=== PATIENT | male | born 1960 | race Caucasian/White ===

== ENCOUNTER 2018-12-15 23:19 | Emergency (ER) | payer BC ==
[2018-12-15] MEDS ORDERED: Zofran 4 MG/2 ML VIAL IV ONE (23:52)
[2018-12-15] MEDS ORDERED: Hydromorphone 1 mg/ml Ampule IV ONE (23:53)
[2018-12-15] MEDS ORDERED: Zofran 4 MG/2 ML VIAL ONE (23:58)
[2018-12-15] MEDS ORDERED: Hydromorphone 1 mg/ml Ampule ONE (23:58)
[2018-12-16 00:33] LABS: Absolute Neutrophil Ct (ANC) 5.81 (1.4-6.9); BASOPHIL % 0.4 % (0.0-0.4); Basophil (Absolute #) 0.05 (0-0.4); Eosinophil % 4.1 % (0.00-5.0); Eosinophil (Absolute #) 0.46 (0-0.5); Hematocrit 49.3 % (42-50); Hemoglobin 15.8 gm/dl (12.5-18.0); Lymphocyte (Absolute #) 4.16 (1.0-4.6); Lymphocytes % 36.9 % (24.0-44.0); Mean Cell Volume 88.2 fl (78-100); Mean Corpuscular Hemoglobin 28.3 pg (26-32); Mean Platelet Volume 10.5 fl (6-9.5); Monocyte (Absolute #) 0.78 (0.0-1.3); Monocytes % 6.9 % (0.0-12.0); Neutrophil % 51.7 % (36.0-66.0); Platelet Count 280 K/mm3 (150-450); Red Blood Count 5.59 M/mm3 (4.1-5.6); Red Cell Distribution Width 14.9 % (11.5-14.0); White Blood Count 11.3 K/mm3 (4.0-10.5)
[2018-12-16 00:50] LABS: ALBUMIN 4.6 g/dL (3.5-5.0); ALKALINE PHOSPHATASE 233 U/L (38-126); AMYLASE 1080 U/L (30-110); ANION GAP 18.3 MEQ/L (5-15); BLOOD UREA NITROGEN 15 mg/dL (9-20); CHLORIDE 100 mmol/L (98-107); Carbon Dioxide 30 mmol/L (22-30); Creatinine 1 0.99 mg/dL (0.66-1.25); Glucose 151 mg/dL (74-106); Potassium 3.9 mmol/L (3.5-5.1); SGOT/AST 620 U/L (17-59); SGPT/ALT 737 U/L (0-50); SODIUM 144 mmol/L (137-145); Total Protein 8.2 g/dL (6.3-8.2)
[2018-12-16 01:12] LABS: LIPASE 27099 U/L (23-300)
--- NOTE | 2018-12-16 01:37 | ERPHSYRPT ---
- History of Present Illness Time Seen by Provider: 12/15/18 23:45 Historian: patient Exam Limitations: other (Pain - difficult to assess due to discomfort level sitging on end of exam bed...cannot lay down) Patient Subjective Stated Complaint: Pt states, "I've been taking Atorvastatin 3 weeks ago and took it for a week and was really sick. Then I started taking it every other day and have still been sick on the days taking it but not sick on the days i didn't take it". Triage Nursing Assessment: pt was vomiting in waiting room upon walking back to rm 7. Pt c/o upper abd pain all the way across abd, states "It's from the atorvastatin I've been taking". Pt also c/o flank pain bilat. Abd lg, obese and soft with active bs x4 quad, tender on palpation. Lungs clear, heart tones reg. Physician History: As above - patient thinks sick - pain - after taking Atorvistatin for one week. Tonight pain increased and vomiting in waiting room. Hs diabetes and is on Metformin. Timing/Duration: today Activities at Onset: none Quality: burning, cramping, fullness, pressure, sharpness Abdominal Pain Onset Location: generalized abdomen Pain Radiation: no radiation Severity of Pain-Max: severe Severity of Pain-Current: severe Modifying Factors: Improves With: nothing Associated Symptoms: vomiting Previous symptoms: no prior history Allergies/Adverse Reactions: No Known Drug Allergies Allergy (Unverified 09/21/11 09:33) Home Medications: Lisinopril 10 mg [Zestril 10 MG] 10 mg PO DAILY 09/16/14 [History] Atorvastatin Calcium 20 mg PO CLARIFY 12/15/18 [History] Liraglutide [Victoza 2-Milton] 1.8 mg SQ DAILY 12/15/18 [History] Metformin HCl 500 mg [Glucophage 500 MG] 500 mg PO BID 12/15/18 [History] Hx Tetanus, Diphtheria Vaccination/Date Given: Yes Hx Influenza Vaccination/Date Given: No Hx Pneumococcal Vaccination/Date Given: No Immunizations Up to Date: Yes - Review of Systems Constitutional: Malaise Eyes: No Symptoms Ears, Nose, & Throat: No Symptoms Respiratory: No Symptoms, No Cough, No Cyanosis, No Dyspnea Cardiac: No Symptoms, No Chest Pain Abdominal/Gastrointestinal: Abdominal Pain, Nausea, Vomiting, No Diarrhea Genitourinary Symptoms: No Symptoms, No Dysuria, No Frequency Musculoskeletal: No Symptoms Skin: No Symptoms Neurological: No Symptoms All Other Systems: Reviewed and Negative - Past Medical History Pertinent Past Medical History: Yes Neurological History: No Pertinent History ENT History: No Pertinent History Cardiac History: Hypertension Respiratory History: No Pertinent History Endocrine Medical History: Diabetes Type II Musculoskeletal History: Osteoarthritis GI Medical History: No Pertinent History History: No Pertinent History Psycho-Social History: No Pertinent History Male Reproductive Disorders: No Pertinent History Other Medical History: ROTATOR CUFF REPAIR 03/2016. 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 BACK SURGERY FOR RUPTURED DISC 20 YEARS AGO - Past Surgical History Past Surgical History: Yes Neuro Surgical History: No Pertinent History Cardiac: No Pertinent History Respiratory: Lobectomy Gastrointestinal: No Pertinent History Genitourinary: No Pertinent History Musculoskeletal: Joint Replacement, Orthopedic Surgery Male Surgical History: No Pertinent History Other Surgical History: rt knee replacement. ROTATOR CUFF REPAIR 03/2016. 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 BACK SURGERY FOR RUPTURED DISC 20 YEARS AGO - Social History Smoking Status: Former smoker Exposure to second hand smoke: Yes Drug Use: none Patient Lives Alone: No - Nursing Vital Signs Nursing Vital Signs: Initial Vital Signs Temperature 98.4 F 12/15/18 23:20 Pulse Rate 110 H 12/15/18 23:20 Respiratory Rate 20 12/15/18 23:20 Blood Pressure 111/93 12/15/18 23:20 O2 Sat by Pulse Oximetry 99 12/15/18 23:20 Pain Scale Pain Intensity 3 - Physical Exam General Appearance: severe distress (Vomiting; pain) Eye Exam: PERRL/EOMI Ears, Nose, Throat Exam: normal ENT inspection Neck Exam: normal inspection Respiratory Exam: normal breath sounds, lungs clear, airway intact Cardiovascular Exam: regular rate/rhythm, normal heart sounds Gastrointestinal/Abdomen Exam: distention, guarding Back Exam: normal inspection, normal range of motion Extremity Exam: normal inspection, normal range of motion Neurologic Exam: alert, oriented x 3 Skin Exam: normal color, warm, dry SpO2 Interpretation: normal SpO2: 99 O2 Delivery: Room Air - Course Nursing assessment & vital signs reviewed: Yes - CT Exams Abdomen/Pelvis CT Interpretation: Tele-radiologist Report (GB stones; common duct and hepatic duct dilation; Pancreatitis) Ordered Tests: Active Orders 24 hr Category Date Time Status ABDOMEN AND PELVIS W/0 CONTRAS [CT] Stat Exams 12/16/18 00:56 Taken Medication Summary Discontinued Medications Generic Name Dose Route Start Last Admin Trade Name Bina PRN Reason Stop Dose Admin Hydromorphone HCl 1 mg 12/15/18 23:53 12/16/18 00:01 Hydromorphone 1 Mg/Ml Ampule IV 12/15/18 23:54 1 mg STAT ONE Administration Hydromorphone HCl Confirm 12/15/18 23:58 Hydromorphone 1 Mg/Ml Ampule Administered 12/15/18 23:59 Dose 1 mg .ROUTE .STK-MED ONE Hydromorphone HCl 1 mg 12/16/18 02:27 12/16/18 02:31 Hydromorphone 1 Mg/Ml Ampule IV 12/16/18 02:28 1 mg STAT ONE Administration Hydromorphone HCl Confirm 12/16/18 02:27 Hydromorphone 1 Mg/Ml Ampule Administered 12/16/18 02:28 Dose 1 mg .ROUTE .STK-MED ONE Lactated Ringer's Confirm 12/16/18 03:31 Lactated Ringers Administered 12/16/18 03:32 Dose 1,000 mls @ ud IV .STK-MED ONE Lactated Ringer's 1,000 mls @ 250 mls/hr 12/16/18 04:00 12/16/18 03:34 Lactated Ringers IV 01/15/19 03:59 250 mls/hr .Q4H JUS Administration Ondansetron HCl 8 mg 12/15/18 23:52 12/16/18 00:01 Zofran 4 Mg/2 Ml Vial IV 12/15/18 23:53 8 mg STAT ONE Administration Ondansetron HCl Confirm 12/15/18 23:58 Zofran 4 Mg/2 Ml Vial Administered 12/15/18 23:59 Dose 8 mg .ROUTE .STK-MED ONE Lab/Rad Data: Laboratory Result Diagrams 12/15/18 00:23 12/15/18 00:23 Laboratory Results 12/15/18 12/15/18 Range/Units 00:23 00:23 WBC 11.3 H (4.0-10.5) K/mm3 RBC 5.59 (4.1-5.6) M/mm3 Hgb 15.8 (12.5-18.0) gm/dl Hct 49.3 (42-50) % MCV 88.2 (78-100) fl MCH 28.3 (26-32) pg MCHC 32.0 (32-36) g/dl RDW 14.9 H (11.5-14.0) % Plt Count 280 (150-450) K/mm3 MPV 10.5 H (6-9.5) fl Gran % 51.7 (36.0-66.0) % Eos # (Auto) 0.46 (0-0.5) Absolute Lymphs (auto) 4.16 (1.0-4.6) Absolute Monos (auto) 0.78 (0.0-1.3) Lymphocytes % 36.9 (24.0-44.0) % Monocytes % 6.9 (0.0-12.0) % Eosinophils % 4.1 (0.00-5.0) % Basophils % 0.4 (0.0-0.4) % Absolute Granulocytes 5.81 (1.4-6.9) Basophils # 0.05 (0-0.4) Sodium 144 (137-145) mmol/L Potassium 3.9 (3.5-5.1) mmol/L Chloride 100 (98-107) mmol/L Carbon Dioxide 30 (22-30) mmol/L Anion Gap 18.3 H (5-15) MEQ/L BUN 15 (9-20) mg/dL Creatinine 0.99 (0.66-1.25) mg/dL Estimated GFR > 60.0 ML/MIN Glucose 151 H (74-106) mg/dL Calcium 11.0 H (8.4-10.2) mg/dL Total Bilirubin 1.90 H (0.2-1.3) mg/dL AST 620 H (17-59) U/L ALT 737 H (0-50) U/L Alkaline Phosphatase 233 H (38-126) U/L Serum Total Protein 8.2 (6.3-8.2) g/dL Albumin 4.6 (3.5-5.0) g/dL Amylase 1080 H (30-110) U/L Lipase 94393 H (23-300) U/L - Progress Progress: improved (Pain relief with dilaudid and emesis controlled with zofran) Progress Note: 12/16/18 03:39 CT and lab results (Amylase/1080; Lipase/27,099 - ALT/AST/Alk Phos) discussed with [facility] - GI Dr. Sylvester; Hospitalist Dr Ball. The surgeon is Dr. Castillo to be on consult. Plan is for ERCP at 0900 this morning. 12/16/18 04:17 Discussion with patient and spouse - at length - lab and CT results and need for further evaluation/procedure/surgery. Counseled pt/family regarding: lab results, diagnosis (Plan for definitive evaluation at [facility]) - Departure Departure Disposition: Transfer Clinical Impression: Pancreatitis due to common bile duct stone Condition: Stable Critical Care Time: Yes Critical Care Time(excluding separately billable procedures): Critical 30-74 mins (Eval of labs, patient clinical picture/history; CT results; discussion with hospitalist attempts to transfer to [facility] (pt refuses [facility]) and final discussion with GI and Hospitalist at [facility]) Referrals: JS MONSALVE, LUIS A [Primary Care Provider] -
[2018-12-16] MEDS ORDERED: Hydromorphone 1 mg/ml Ampule IV ONE (02:27)
[2018-12-16] MEDS ORDERED: Hydromorphone 1 mg/ml Ampule ONE (02:27)
[2018-12-16] MEDS ORDERED: Lactated Ringers 1,000 ML IV ONE (03:31)
[2018-12-16] MEDS ORDERED: Lactated Ringers 1,000 ML IV SCH (04:00)
[2018-12-16 04:12] VITALS: BP 118/88; PULSE 121
[2018-12-16 04:13] VITALS: O2SAT 99
--- NOTE | 2018-12-16 09:27 | XRAY ---
Indication: Abdomen/flank pain. Heartburn and emesis. Multiple contiguous axial images obtained through the abdomen and pelvis without contrast as ordered. Comparison: November 20, 2018. Study limited due to patient body habitus. Lung bases are grossly clear. Heart is not enlarged. Stomach is mildly distended with fluid. Noncontrasted stomach and bowel loops appear nonobstructed. Normal appendix. Again minimal descending and sigmoid diverticulosis. No free fluid/air. Gallbladder mildly distended with intraluminal gravel/sludge., Bile duct is now 12 mm diameter. Again diffuse fatty liver. Spleen remains enlarged measuring 16.5 cm. Remaining liver, gallbladder, pancreas, spleen, adrenal glands, kidneys, ureters, and bladder appear unremarkable for noncontrast exam. Again minimal aortoiliac calcifications without AAA. Osseous structures intact again with mild degenerative changes throughout the thoracolumbar spine. Stable small fatty left inguinal hernia. Impression: 1. Again limited exam due to patient body habitus. 2. Gallbladder gravel/sludge. Sonogram may yield further information. 3. Prominent common bile duct. ERCP/MRCP may yield further information. 4. Again incidental fatty liver, splenomegaly, colonic diverticulosis, and fatty left inguinal hernia. Comment: Preliminary interpretation was made by [facility]. No critical discrepancy. CTDI 23.68
== END 2018-12-16 04:46 | disposition short-term general hospital (02) ==
LOC: ED 23:19
DX: K85.90 Acute pancreatitis without necrosis or infection, unspecified (principal); K80.50 Calculus of bile duct without cholangitis or cholecystitis without obstruction
CPT/HCPCS: 36415; 74176; 80053; 82150; 83690; 85025; 96374; 96375; 96376; 99285; 99291; J1170; J2405

== ENCOUNTER 2021-05-07 05:50 | Day surgery (SDC) | payer OTHER ==
[2021-05-07] MEDS ORDERED: Lactated Ringers 1,000 ML IV SCH (06:30)
[2021-05-07] MEDS ORDERED: Xylocaine-Mpf 2% 5 Ml Vial ONE (06:57)
[2021-05-07] MEDS ORDERED: DIPRIVAN 200 MG/20 ML IV ONE ×3 (06:57→07:23)
[2021-05-07 08:41] VITALS: O2SAT 96
[2021-05-07 08:42] VITALS: PULSE 83
[2021-05-07 08:43] VITALS: BP 127/90
--- NOTE | 2021-05-07 09:05 | OP ---
SURGERY DATE/TIME: 05/07/2021 0703 PREOPERATIVE DIAGNOSIS: Screening exam. POSTOPERATIVE DIAGNOSIS: Mild sigmoid diverticulosis otherwise normal colon. PROCEDURE: Colonoscopy. SURGEON: Dr. De. ANESTHESIA: MAC. Medications given by anesthesia department. HISTORY: The patient is a 60-year-old white male patient who presents for screening colonoscopy. The patient was appraised of the risks of the procedure including the risk of perforation, phlebitis, untoward reaction to medication, bleeding and missed lesions. The patient verbalized his understanding and desired to have the procedure performed. DESCRIPTION OF PROCEDURE: The patient was given the medications by the anesthesia department. He had continuous pulse oximetry, ECG monitoring, intermittent blood pressure monitoring during the examination. He was placed in the left lateral decubitus position. A digital rectal examination was performed and revealed normal anal sphincter tone, no masses and normal prostate. The flexible Olympus pediatric colonoscope was used to intubate the rectum. A view of the colon was developed sequentially to the cecum. Upon insertion and withdrawal, there was noted to be mild sigmoid diverticulosis otherwise the colon was felt to be normal. The scope was removed from the patient who tolerated the procedure well and was sent back to OP recovery in good condition. The prep was noted to be fair.
== END 2021-05-07 08:47 | disposition home or self-care (01) ==
LOC: SDC 05:50
PROVIDERS: ATTEND Family Medicine
DX: Z12.11 Encounter for screening for malignant neoplasm of colon (principal); K57.30 Diverticulosis of large intestine without perforation or abscess without bleeding; E11.9 Type 2 diabetes mellitus without complications
CPT/HCPCS: 82947; J2704

== ENCOUNTER 2022-04-04 16:12 | Emergency (ER) | payer OTHER ==
[2022-04-04 17:30] VITALS: O2SAT 95
--- NOTE | 2022-04-04 18:37 | ERPHSYRPT ---
- History of Present Illness Time Seen by Provider: 04/04/22 18:30 Source: patient Exam Limitations: no limitations Patient Subjective Stated Complaint: C/O pain in left calf when standing/walking. Patient had a left knee surgery on 03/29/[address] Fitzgerald. Patient began having pain in his calf 2 days ago. States he was in PT today and the therapist, Manish wanted him to be evaluated for a DVT. Triage Nursing Assessment: Patient brought back to the ER in a W/C. He is alert and oriented. An intact bandage noted to left knee; patient states dressing is to remain in place until his follow-up appointment with Dr. Fitzgerald. LLE is swollen and tight, hot to touch. Physician History: Patient is a 61-year-old male 6 days postop left total knee arthroplasty presents to our ED as a referral for ultrasound to rule out DVT. Patient has been experiencing left posterior leg pain for approximately 2 days. Patient had physical therapy today. Patient's physical therapist was concerned and contacted the surgeon who advised patient come to our ED for an evaluation. No other complaints. No chest pain or shortness of breath. No nausea vomiting or diaphoresis. Patient states physical therapy is coming along well. Patient's pain described as an ache that is localized. No radiation. Pain worse with palpation pain improved with rest. Patient voices no other complaints or concerns at this time. Patient declined pain medication. Portions of this note were created with voice recognition technology. There may be grammatical, spelling, punctuation or sound alike errors Timing/Duration: day(s) (2 days) Severity: moderate (Patient declined pain medication.) Modifying Factors: Improves With: other (Palpation) Associated Symptoms: denies symptoms (No chest pain or shortness of breath. No nausea vomiting or diaphoresis.) Allergies/Adverse Reactions: No Known Drug Allergies Allergy (Verified 04/04/22 16:29) Home Medications: Atorvastatin Calcium 20 mg PO CLARIFY 12/15/18 [History] Liraglutide [Victoza 2-Milton] 1.8 mg SQ DAILY 12/15/18 [History] Metformin HCl 500 mg [Glucophage 500 MG] 500 mg PO BID 12/15/18 [History] Gabapentin [Neurontin ] 1,800 mg PO HS 05/04/21 [History] Lisinopril/Hydrochlorothiazide [Lisinopril-Hctz 10-12.5 mg Tab] 1 each PO DAILY 05/04/21 [History] Hx Tetanus, Diphtheria Vaccination/Date Given: Yes Hx Influenza Vaccination/Date Given: No Hx Pneumococcal Vaccination/Date Given: No Immunizations Up to Date: Yes Travel Risk - International Travel Have you traveled outside of the country in past 3 weeks: No - Coronavirus Screening Are you exhibiting any of the following symptoms?: No Close contact with a COVID-19 positive Pt in past 14-21 Days: No - Vaccine Status Have you recieved a Covid-19 vaccination: Yes Air And Water Filler: Moderna - Vaccination Dates Date of 2cond Vaccination (if applicable): ? - Review of Systems Constitutional: No Symptoms, No Fever, No Chills Eyes: No Symptoms Ears, Nose, & Throat: No Symptoms Respiratory: No Symptoms, No Cough, No Dyspnea Cardiac: No Symptoms, No Chest Pain, No Edema, No Syncope Abdominal/Gastrointestinal: No Symptoms, No Abdominal Pain, No Nausea, No Vomiting, No Diarrhea Genitourinary Symptoms: No Symptoms, No Dysuria Musculoskeletal: No Symptoms, No Back Pain, No Neck Pain Skin: No Symptoms, No Rash Neurological: No Symptoms, No Dizziness, No Focal Weakness, No Sensory Changes Psychological: No Symptoms Endocrine: No Symptoms Hematologic/Lymphatic: No Symptoms Immunological/Allergic: No Symptoms All Other Systems: Reviewed and Negative - Past Medical History Pertinent Past Medical History: Yes Neurological History: No Pertinent History ENT History: No Pertinent History Cardiac History: High Cholesterol, Hypertension Respiratory History: No Pertinent History Endocrine Medical History: Diabetes Type II Musculoskeletal History: Osteoarthritis GI Medical History: GERD, Gallbladder Disease History: No Pertinent History Psycho-Social History: No Pertinent History Male Reproductive Disorders: No Pertinent History Other Medical History: ROTATOR CUFF RIGHT SHOULDER REPAIR 03/2016. 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 BACK SURGERY FOR RUPTURED DISC 20 YEARS AGO. R TKA 2019. L side lobectomy many years ago per pt - Past Surgical History Past Surgical History: Yes Neuro Surgical History: No Pertinent History Cardiac: No Pertinent History Respiratory: Lobectomy Gastrointestinal: Cholecystectomy Genitourinary: No Pertinent History Musculoskeletal: Joint Replacement, Orthopedic Surgery Male Surgical History: No Pertinent History Other Surgical History: rt knee replacement, ROTATOR CUFF REPAIR,. LOWER LEFT LOBECTOMY FOR HISTOPLASMOSIS,. BACK SURGERY FOR RUPTURED DISC 20 YEARS AGO - Social History Smoking Status: Former smoker Exposure to second hand smoke: No Drug Use: none Patient Lives Alone: No - Nursing Vital Signs Nursing Vital Signs: Initial Vital Signs Temperature 98.6 F 04/04/22 16:31 Pulse Rate 100 H 04/04/22 16:31 Respiratory Rate 18 04/04/22 16:31 Blood Pressure 122/68 04/04/22 16:31 O2 Sat by Pulse Oximetry 92 L 04/04/22 16:31 Pain Scale Pain Intensity 8 - Physical Exam General Appearance: no apparent distress, alert Eye Exam: PERRL/EOMI, eyes nml inspection Ears, Nose, Throat Exam: normal ENT inspection, TMs normal, pharynx normal, moist mucous membranes Neck Exam: normal inspection, non-tender, supple, full range of motion Respiratory Exam: normal breath sounds, lungs clear, airway intact, No respiratory distress Cardiovascular Exam: regular rate/rhythm, normal heart sounds, normal peripheral pulses Gastrointestinal/Abdomen Exam: soft, normal bowel sounds, No tenderness, No mass Back Exam: normal inspection, normal range of motion, No CVA tenderness, No vertebral tenderness Extremity Exam: normal inspection, normal range of motion, pelvis stable, other (Left calf tenderness and swelling. Neurovascular intact distally. Compartments are soft. Cap refill less than 2 seconds.) Neurologic Exam: alert, oriented x 3, cooperative, normal mood/affect, nml cerebellar function, nml station & gait, sensation nml, No motor deficits Skin Exam: normal color, warm, dry, No rash Lymphatic Exam: No adenopathy SpO2: 95 - Course Nursing assessment & vital signs reviewed: Yes - Radiology Ultrasound Exam Venous Lower Extremity Ultrasound: discussed w/radiologist (Per energy crop farmer. Negative for DVT.) Ordered Tests: Active Orders 24 hr Category Date Time Status Ultrasound Unilateral Extremities [VENOUS UNILAT/ Exams 04/04/22 17:05 Ordered LIMITED EXTREMIT] [US] Stat UA W/RFX UR CULTURE Stat Lab 04/04/22 17:28 Ordered - Progress Progress: improved Progress Note: Patient is 61-year-old male postop day 6 status post left knee arthroplasty. Physical exam reveals a tenderness to palpation left posterior leg concerning for possible DVT. Review of systems otherwise negative. Patient symptoms are acute. Complexity of complaint is straightforward. Postoperative procedure likely contributing to patient's current symptoms. Test ordered was left lower extremity ultrasound. Ultrasound report according to energy crop farmer was negative. Results implemented for medical decision making. Patient declined pain medication. No consultations. Plan of care discussed with patient. He agrees to follow-up with his primary care doctor within 48 hours for evaluation. Level of EM service provided was straightforward. Complexity of the problem was mild. Amount and complexity of data reviewed and analyzed was minimal. Risk of complication and/or morbidity/mortality of patient management was minimal. No critical care time. Patient served as an independent historian. Portions of this note were created with voice recognition technology. There may be grammatical, spelling, punctuation or sound alike errors 04/04/22 18:33 Counseled pt/family regarding: diagnosis, need for follow-up, rad results - Departure Departure Disposition: Home Clinical Impression: Post-op pain Condition: Stable Critical Care Time: No Referrals: JS MONSALVE, [employer]PUT[employer] [Primary Care Provider] - Follow up/PCP as directed Additional Instructions: Discharge/Care Plan ROSALINDAEMMANUEL CROSS was seen on 04/04/22 in the Emergency Room. The patient was counseled regarding Diagnosis,Lab results, Imaging studies, need for follow up and when to return to the Emergency Room. Prescriptions given: Discharge Note I have spoken with the patient and/or caregivers. I have explained the patient's condition, diagnosis and treatment plan based on the information available to me at this time. I have answered the patient's and/or caregiver's questions and addressed any concerns. The patient and/or caregivers have as good understanding of the patient's diagnosis, condition and treatment plan as can be expected at this point. The vital signs have been stable. The patient's condition is stable and appropriate for discharge from the emergency department. The patient will pursue further outpatient evaluation with the primary care physician or other designated or consulting physician as outlined in the discharge instructions. The patient and/or caregivers are agreeable to this plan of care and follow-up instructions have been explained in detail. The patient and/or caregivers have received these instruction. The patient/and or caregivers are aware that any significant change in condition or worsening of symptoms should prompt an immediate return to this or the closest emergency department or call 911.
[2022-04-04 18:49] VITALS: BP 136/81; PULSE 101
[2022-04-04 19:02] LABS: Appearance Turbid (Clear); Bacteria None Seen /HPF (None Seen); Bilirubin Negative (Negative); Blood Negative (Negative); Epithelial Cells None Seen /HPF (None Seen); Glucose, Urine Negative (Negative); Hyaline Casts NONE SEEN /LPF (0-2); Ketones Negative (Negative); Leukocyte Esterase Negative (Negative); Nitrite Negative (Negative); Ph 7.5 (4.6-8.0); Protein,Urine Dip Negative (Negative); RBC 0-2 /HPF (0-5); WBC 0-2 /HPF (0-5)
[2022-04-04 19:05] LABS: ADD URINE CULTURE? NO (NO)
--- NOTE | 2022-04-05 08:23 | XRAY ---
Indication: Pain and swelling. Status post knee surgery March 29, 2022. Two-dimensional sonogram and color Doppler imaging of the major venous vessels of the left leg performed. Comparison: None No thrombus seen in the examined deep venous vessels of the left leg including greater saphenous vein. Veins demonstrate normal compressibility. Venous waveforms are normal with and without augmentation. Impression: Left leg negative for DVT. Comment: Preliminary report was given.
== END 2022-04-04 18:49 | disposition home or self-care (01) ==
LOC: ED 16:12
DX: G89.18 Other acute postprocedural pain (principal); M79.605 Pain in left leg; E78.5 Hyperlipidemia, unspecified; I10 Essential (primary) hypertension; E11.9 Type 2 diabetes mellitus without complications; Z96.652 Presence of left artificial knee joint; Z79.85 Long-term (current) use of injectable non-insulin antidiabetic drugs; Z79.84 Long term (current) use of oral hypoglycemic drugs; Z79.899 Other long term (current) drug therapy
CPT/HCPCS: 81001; 93971; 99282